=== PATIENT | female | born 1985 | race African-American/Black ===

== ENCOUNTER 2016-05-16 02:16 | Emergency (ER) | payer MEDICAID ==
[~2016-05-16] VITALS: Ht 180.3 cm; Wt 63.5 kg
--- NOTE | 2016-05-16 02:22 | NUR ---
PT BROUGHT IN BY [facility] FOR C/O CHRONIC BACK PAIN THAT IS WORSE TODAY. PER REPORT BLOOD SUGAR ON FIELD WAS 400. PT IS ALERT, ORIENTED X 4, NO RESP DISTRESS NOTED OR REPORTED UPON ASSESSMENT. MD AT BEDSIDE...
[2016-05-16] MEDS ORDERED: INSU100V9 SUBCUT (02:29)
[2016-05-16] MEDS ORDERED: INSU3INS6 SQ (02:29)
[2016-05-16] MEDS ORDERED: INSULIN REGULAR, HUMAN 1,000 UNITS/10 ML VIAL IV ONE (03:15)
[2016-05-16] MEDS ORDERED: IV NORMAL SALINE 1000 ML BAG IV ONE (03:15)
--- NOTE | 2016-05-16 03:30 | NUR ---
PT REFUSING 10 UNITS OF INSULIN, REQUESTING [facility], ADVISED NEEDS FAST ACTING INSULIN DUE TO BLOOD SUGAR 521...PT ALSO REFUSING BLOOD DRAW... ADVISED...
[2016-05-16 03:40] LABS: *BILIRUBIN,URIN NEGATIVE (NEGATIVE); *BLOOD, URINE Trace-lysed (NEGATIVE); *CLARITY,URINE CLEAR (CLEAR); *COLOR,URINE LIGHT YELLOW (YELLOW); *KETONES,URINE NEGATIVE (NEGATIVE); *PROTEIN,URINE NEGATIVE (NEGATIVE); *UROBILINOGEN,URINE 0.2 E.U./dl (NORMAL); LEUKOCYTE ESTERASE ,URINE NEGATIVE (NEGATIVE); NITRITE, URINE NEGATIVE (NEGATIVE)
[2016-05-16 03:44] LABS: UGLUCOSE 3+ (NEGATIVE)
[2016-05-16 03:46] LABS: BACTERIA,URINE FEW /HPF (NONE SEEN); RBC,URINE 0-3 /HPF (0-3); SQUAMOUS EPITHELIAL CELL,UR MANY /HPF (NONE SEEN); WBC,URINE 0-3 /HPF (0-3)
[2016-05-16 03:49] LABS: *AMPHETAMINE, URINE NEGATIVE (NEGATIVE); *BARBITURATE, URINE NEGATIVE (NEGATIVE); *CANNABINOID, URINE NEGATIVE (NEGATIVE); *COCCAINE, URINE NEGATIVE (NEGATIVE); *OPIATE, URINE NEGATIVE (NEGATIVE); *PHENCYCLIDINE SCREEN,URINE NEGATIVE (NEGATIVE)
[2016-05-16] MEDS ORDERED: INSULIN REGULAR, HUMAN 300 UNIT/3 ML VIAL ONE (03:57)
[2016-05-16] MEDS ORDERED: ONDANSETRON 4 MG/2 ML VIAL ONE (04:44)
[2016-05-16] MEDS ORDERED: HYDROMORPHONE 1 MG/1 ML DISP.SYRIN ONE (04:44)
[2016-05-16 05:18] LABS: *URINE HCG, QUAL NEGATIVE (NEGATIVE)
[2016-05-16] MEDS ORDERED: INSULIN REGULAR, HUMAN 1,000 UNITS/10 ML VIAL SUBCUT ONE (05:45)
--- NOTE | 2016-05-16 05:46 | NUR ---
BLOOD SUGAR RECHECKED PER ER MD, ADVISED BS 433, PER ERMD TO GIVE 8 UNITS SUB-Q, PT REFUSED, ERMD ADVISED...
--- NOTE | 2016-05-16 06:01 | NUR ---
Patient discharged to home in stable conditon. Written and verbal after care instructions given. Patient verbalizes understanding of instructions. pt walked out of ER unassisted with belongings at side..
[2016-05-16 06:25] VITALS: BP 126/85
== END 2016-05-16 06:25 | disposition home or self-care (01) ==
LOC: ER 02:17
DX: E11.9 Type 2 diabetes mellitus without complications (principal); Z79.4 Long term (current) use of insulin; Z59.0 Homelessness; Z88.6 Allergy status to analgesic agent; Z88.8 Allergy status to other drugs, medicaments and biological substances
CPT/HCPCS: 71010; 80307; 81001; 82962 ×2; 84703; 87086; 93005; 96360; 96361; 99285; A4663; J1815; J2405; J7030; J1170; J3490

== ENCOUNTER 2016-07-11 20:58 | Emergency (ER) | payer MEDICAID ==
[~2016-07-11] VITALS: Ht 180.3 cm; Wt 68.0 kg
[~2016-07-11 20:58] MED LIST: INSU100V9 SUBCUT; INSU3INS6 SQ
--- NOTE | 2016-07-11 21:10 | NUR ---
PATIENT BROUGHT INTO ER [facility] FROM [facility] C/O LEG AND BACK PAIN WITH WEAKNESS, PT IS ALERT, ORIENTED X 4, NO RESP DISTRESS NOTED OR REPORTEDUPON ASSESSMENT...MD AT BEDSIDE...
[2016-07-11] MEDS ORDERED: IV NORMAL SALINE 1000 ML BAG IV ONE ×2 (21:15→22:15)
[2016-07-11 21:33] LABS: ABG BASE EXCESS -4.9 mmol/L; ABG PCO2 41.8 mmHg (35.0-45.0); ABG PH 7.318 (7.350-7.450); ABG PO2 23.2 mmHg (75.0-100.0); ABG SITE LEFT BRACHIAL; ABG TOTAL HEMOGLOBIN 12.9 G/dL (12.0-16.0); COHb 0.9 % (0.5-1.5); O2Hb 36.3 % (94.0-97.0)
[2016-07-11 21:40] LABS: BASOPHILS % (AUTO) 0.3 % (0.0-2.0); EOSINOPHILS % (AUTO) 0.1 % (0.0-7.0); HEMATOCRIT 39.4 % (37-47); HEMOGLOBIN 12.9 G/DL (12.0-16.0); LYMPHOCYTES # (AUTO) 2.5 K/UL (0.8-4.8); LYMPHOCYTES % (AUTO) 35.4 % (20.5-51.5); MEAN CORPUSCULAR HEMOGLOBIN 26.7 UUG (27.0-31.0); MEAN CORPUSCULAR HGB CONC 33 g/dL (32.0-37.0); MEAN CORPUSCULAR VOLUME 81.6 FL (81.0-99.0); MONOCYTES # (AUTO) 0.4 K/UL (0.1-1.30); MONOCYTES % (AUTO) 5.9 % (0.0-11.0); NEUTROPHILS % (AUTO) 58.3 % (38.5-71.5); PLATELET COUNT (AUTO) 276 K/UL (150-450); RED BLOOD CELL COUNT(AUTO) 4.83 MIL/UL (4.2-5.4); WHITE BLOOD COUNT (AUTO) 6.9 K/UL (4.0-11.2)
[2016-07-11 21:49] LABS: *BILIRUBIN,URIN NEGATIVE (NEGATIVE); *BLOOD, URINE NEGATIVE (NEGATIVE); *CLARITY,URINE CLEAR (CLEAR); *COLOR,URINE STRAW (YELLOW); *KETONES,URINE 1+ (NEGATIVE); *PROTEIN,URINE NEGATIVE (NEGATIVE); *UROBILINOGEN,URINE 0.2 E.U./dl (NORMAL); LEUKOCYTE ESTERASE ,URINE NEGATIVE (NEGATIVE); NITRITE, URINE NEGATIVE (NEGATIVE)
[2016-07-11 21:52] LABS: *URINE HCG, QUAL NEGATIVE (NEGATIVE)
[2016-07-11 21:53] LABS: CREATININE 0.9 mg/dL (0.6-1.3); POTASSIUM 4.8 mmol/L (3.5-5.1)
[2016-07-11 22:00] LABS: BILIRUBIN,DIRECT 0.1 mg/dL (0.0-0.2); BILIRUBIN,TOTAL 0.2 mg/dL (0.2-1.0); TOTAL PROTEIN, SERUM 7.1 g/dL (6.4-8.2)
[2016-07-11] MEDS ORDERED: INSULIN REGULAR, HUMAN 1,000 UNITS/10 ML VIAL SUBCUT ONE (22:15)
[2016-07-11] MEDS ORDERED: INSULIN REGULAR, HUMAN 300 UNIT/3 ML VIAL ONE (22:29)
[2016-07-11 22:32] LABS: UGLUCOSE 2+ (NEGATIVE)
[2016-07-11 22:44] LABS: BACTERIA,URINE FEW /HPF (NONE SEEN); RBC,URINE 0-3 /HPF (0-3); SQUAMOUS EPITHELIAL CELL,UR FEW /HPF (NONE SEEN)
--- NOTE | 2016-07-11 23:45 | NUR ---
Juliette luna in ED - 07/12/16 at 0129 by [facility] HERE TO TRANSPORT PT TO [facility] FOR CT OF HEAD, DUE TO CT MACHINE DOWN... PT IS ALERT, ORIENTED X 4, NO RESP DISTRESS NOTED OR REPORTED UPON TRANSFER ASSESSMENT...
[2016-07-11] MEDS ORDERED: HYDR-4077 PO (23:50)
[2016-07-11] MEDS ORDERED: METF500T4 PO (23:50)
[2016-07-11] MEDS ORDERED: RIVA10TA PO (23:50)
[2016-07-11] MEDS ORDERED: ASPI-605 PO (23:50)
[2016-07-11] MEDS ORDERED: OLME20TA15 PO (23:50)
--- NOTE | 2016-07-12 01:25 | NUR ---
Patient was presented with discharge papers, and was informed multiple times by ROBBIN that she would be discharged from the hospital, at which point she continues to lay in bed with her eyes closed. She will respond to direct questions but otherwise ignores staff. Patient was informed that she was discharged and stated "but I don't feel good." Patient informed that Security and [employer] would be contacted to which she stated "fine, call the police." Patient refusing to leave. ROBBIN, Nursing Research/Program Director, Security, and [employer] notified.
--- NOTE | 2016-07-12 01:34 | NUR ---
ERMD met with patient in an attempt to address the reason the patient will not leave. Patient continued to lay in bed with eyes closes and ignored ERMD.
--- NOTE | 2016-07-12 01:45 | NUR ---
SECURITY CONTACTED...SECURITY AT BEDSIDE...
--- NOTE | 2016-07-12 02:51 | NUR ---
NURSE CONTACTED [employer] NON EMERGENCY NUMBER, SPOKE WITH ULTRASOUND COORDINATOR 780, WHO STATED NO ETA AT THE MOMENT, WILL CONTINUE TO WAIT FOR POLICE...
--- NOTE | 2016-07-12 03:54 | NUR ---
POLICE OFFICERS AT BEDSIDE... ESCORTED PT OUT... PT WENT INTO RESTROOM IN WAITING ROOM THAN EXITED ER WITH POLICE AT SIDE... PT REQUESTING TO BE TAKEN TO [facility], [facility] CALLED, ADVISED PT [facility] ARE NOT A [facility], [facility]...
[2016-07-12 04:12] VITALS: BP 131/97
== END 2016-07-12 04:13 | disposition home or self-care (01) ==
LOC: ER 20:58
DX: E11.65 Type 2 diabetes mellitus with hyperglycemia (principal); R53.1 Weakness; Z79.4 Long term (current) use of insulin; Z88.6 Allergy status to analgesic agent; Z88.8 Allergy status to other drugs, medicaments and biological substances; Z79.82 Long term (current) use of aspirin; Z59.0 Homelessness
CPT/HCPCS: 36415; 36600; 80048; 80076; 81001; 82962 ×3; 83690; 84703; 85025; 85730; 96360; 96361; 96372; 99284; A4663; J1815; J7030 ×3